=== PATIENT | male | born 1955 | race Caucasian/White ===

== ENCOUNTER 2018-11-24 08:52 | Day surgery (SDC) | payer BC ==
[~2018-11-24 08:52] MED LIST: Lactated Ringers 1,000 ML IV SCH
[2018-11-24] MEDS ORDERED: Propofol 200 MG/20 ML SDV ONE ×3 (10:24→11:52)
[2018-11-24] MEDS ORDERED: fentaNYL 100 MCG/2 ML SDV ONE (10:24)
[2018-11-24 13:02] VITALS: BP 120/68; PULSE 60
--- NOTE | 2018-11-24 13:09 | OR ---
DATE OF SURGERY: 11/24/2018. REFERRING PROVIDER: Yue Wyman DO. PRE-OPERATIVE DIAGNOSES: 1. History of colon polyps. Last colonoscopy 3 years ago, revealed multiple adenomas. 2. Positive family history of colon cancer. 3. Positive family history of colon polyps. POST-OPERATIVE DIAGNOSES: 1. Total of 6 polyps removed. a. 2 mm polyp x3 in the cecum. b. 8 mm polyp at 85 cm, removed with hot snare. c. 2 mm polyp x2 at 80 cm. 2. Significant diverticulosis, left greater than right. 3. Normal distal ileum. PROCEDURE: Colonoscopy with polypectomy x6 (5 using cold forceps and 1 using hot snare). SURGEON: Wilmer Villaseñor M.D. ANESTHESIA: Monitored anesthesia care. BOWEL PREP: Good to fair. Drake is a 63-year-old male, who was brought to the endoscopy suite after discussing risks and benefits of the procedure. Informed consent was obtained for conscious sedation and colonoscopy with or without biopsy and/or polypectomy. We also discussed possibility of missed lesions. Pre-procedure exam was unremarkable. IV, oxygen, and monitors were placed. The patient was placed in the left lateral decubitus position. Sedation was administered and a digital rectal exam was performed and unremarkable. Colonoscope was passed into the rectum and slowly advanced all the way to the cecum. Cecum was viewed and photographed. The ileocecal valve was intubated and distal ileum was normal in appearance. The cecum did reveal 2 mm polyp x3, which were all removed using cold forceps. The ascending colon revealed 8 mm polyp at 85 cm, removed with hot snare as well as 2 mm polyp x2 at 80 cm, removed with cold forceps. The entire colon did reveal significant diverticulosis, left greater than right. Otherwise, the transverse colon unremarkable, descending colon unremarkable, sigmoid colon unremarkable. Retroflexion was performed and rectal mucosa was unremarkable. Scope was removed. The patient tolerated the procedure well. The patient was monitored until that baseline status. Discharge instructions were reviewed and the patient was discharged in good condition. COMPLICATIONS: None. TOTAL TIME: 26 minutes. ESTIMATED BLOOD LOSS: About 1 mL. RECOMMENDATIONS/FOLLOW-UP: We will await results of path report to determine ideal followup interval. I will have the patient hold his aspirin for 3 days to limit any chance of bleeding. I would like to kindly thank Yue Wyman for this referral. DMB: 11/24/2018 12:43:27 MODL: 11/24/2018 13:03:16 /[id number] MTDD
== END 2018-11-24 13:35 | disposition home or self-care (01) ==
LOC: VM.SDS 08:52
PROVIDERS: ATTEND Family Medicine
DX: Z12.11 Encounter for screening for malignant neoplasm of colon (principal); D12.0 Benign neoplasm of cecum; D12.2 Benign neoplasm of ascending colon; K63.5 Polyp of colon; K57.30 Diverticulosis of large intestine without perforation or abscess without bleeding; K21.9 Gastro-esophageal reflux disease without esophagitis; I10 Essential (primary) hypertension; E11.9 Type 2 diabetes mellitus without complications; E78.00 Pure hypercholesterolemia, unspecified; E66.01 Morbid (severe) obesity due to excess calories; F41.9 Anxiety disorder, unspecified; M10.9 Gout, unspecified; Z68.38 Body mass index [BMI] 38.0-38.9, adult; Z86.010 Personal history of colon polyps; Z80.0 Family history of malignant neoplasm of digestive organs; Z83.71 Family history of colonic polyps; Z79.82 Long term (current) use of aspirin; Z79.899 Other long term (current) drug therapy
CPT/HCPCS: 45380; 45385; J2704; J3010; J7120; 45384

== ENCOUNTER 2022-01-01 07:06 | Day surgery (SDC) | payer MEDICARE, BC ==
[2022-01-01] MEDS ORDERED: fentaNYL 100 MCG/2 ML SDV ONE (08:10)
[2022-01-01] MEDS ORDERED: Propofol 200 MG/20 ML SDV ONE ×2 (08:10→08:27)
[2022-01-01 09:07] VITALS: PULSE 58
[2022-01-01 09:24] VITALS: BP 98/41
== END 2022-01-01 10:13 | disposition home or self-care (01) ==
LOC: VM.SDS 07:06
PROVIDERS: ATTEND Family Medicine
DX: Z12.11 Encounter for screening for malignant neoplasm of colon (principal); K62.1 Rectal polyp; K63.5 Polyp of colon; K57.30 Diverticulosis of large intestine without perforation or abscess without bleeding; I10 Essential (primary) hypertension; E66.9 Obesity, unspecified; E11.9 Type 2 diabetes mellitus without complications; M10.9 Gout, unspecified; K21.9 Gastro-esophageal reflux disease without esophagitis; F41.9 Anxiety disorder, unspecified; E78.1 Pure hyperglyceridemia; Z79.82 Long term (current) use of aspirin; Z80.0 Family history of malignant neoplasm of digestive organs; Z98.890 Other specified postprocedural states; Z79.899 Other long term (current) drug therapy; Z68.35 Body mass index [BMI] 35.0-35.9, adult
CPT/HCPCS: 00811; 88305; J2704; J3010; J7120

== ENCOUNTER 2024-10-05 09:55 | Emergency (ER) | payer MEDICARE, BC ==
[2024-10-05 10:09] LABS: BASOPHILS PERCENT AUTO 0.3 % (0.2-1.2); EOSINOPHILS PERCENT AUTO 0.4 % (0.0-4.0); HEMATOCRIT 43.8 % (40.0-52.0); HEMOGLOBIN 15.2 g/dL (14.0-18.0); IMMATURE GRAN ABSOLUTE AUTO 0.01 x10^3/uL (0.00-0.07); LYMPHOCYTES ABSOLUTE AUTO 1.1 x10^3/uL (1.0-4.8); LYMPHOCYTES PERCENT AUTO 13.2 % (25.0-50.0); MEAN CORPUSCULAR HEMOGLOBIN 30.9 pg (26.0-32.0); MEAN CORPUSCULAR HGB CONC 34.7 g/dL (32.0-36.0); MONOCYTES ABSOLUTE AUTO 0.7 x10^3/uL (0.0-0.8); MONOCYTES PERCENT AUTO 8.2 % (2.0-11.0); NEUTROPHILS ABSOLUTE AUTO 6.2 x10^3/uL (1.8-7.7); NEUTROPHILS PERCENT AUTO 77.8 % (50.0-80.0); PLATELET COUNT,PLT 186 x10^3/uL (130-400); RED BLOOD CELL COUNT 4.92 x10^6/uL (4.5-6.0)
[2024-10-05 10:19] VITALS: PULSE 62
[2024-10-05 10:25] LABS: ALBUMIN 3.9 g/dL (3.4-5.0); BILIRUBIN TOTAL 0.6 mg/dL (0.2-1.0); CALCIUM 9.3 mg/dL (8.5-10.1); EST CRCL DRUG DOSING (CG) 73.21 mL/min; PROTEIN TOTAL,TP 7.8 g/dL (6.4-8.2)
[2024-10-05 11:02] VITALS: BP 137/63
== END 2024-10-05 10:56 | disposition home or self-care (01) ==
LOC: SUPCPDRO 09:55 → VM.ED 09:55
DX: R07.89 Other chest pain (principal); I10 Essential (primary) hypertension; E78.00 Pure hypercholesterolemia, unspecified; E11.9 Type 2 diabetes mellitus without complications; E66.9 Obesity, unspecified; Z68.35 Body mass index [BMI] 35.0-35.9, adult; Z79.82 Long term (current) use of aspirin; Z79.899 Other long term (current) drug therapy
CPT/HCPCS: 71045; 80053; 84484; 85025; 93005; 93010; 99284; 99285

== ENCOUNTER 2024-10-07 19:46 | Emergency (ER) | payer MEDICARE, BC ==
[2024-10-07 20:26] VITALS: PULSE 61
[2024-10-07 20:28] LABS: BASOPHILS PERCENT AUTO 0.1 % (0.2-1.2); EOSINOPHILS ABSOLUTE AUTO 0.1 x10^3/uL (0.0-0.5); EOSINOPHILS PERCENT AUTO 0.7 % (0.0-4.0); HEMOGLOBIN 14.5 g/dL (14.0-18.0); IMMATURE GRAN ABSOLUTE AUTO 0.02 x10^3/uL (0.00-0.07); LYMPHOCYTES ABSOLUTE AUTO 1.3 x10^3/uL (1.0-4.8); LYMPHOCYTES PERCENT AUTO 15.6 % (25.0-50.0); MEAN CORPUSCULAR HEMOGLOBIN 31.5 pg (26.0-32.0); MEAN CORPUSCULAR HGB CONC 35.4 g/dL (32.0-36.0); MEAN CORPUSCULAR VOLUME 88.9 fL (78.0-93.0); MONOCYTES ABSOLUTE AUTO 0.8 x10^3/uL (0.0-0.8); MONOCYTES PERCENT AUTO 8.7 % (2.0-11.0); NEUTROPHILS ABSOLUTE AUTO 6.4 x10^3/uL (1.8-7.7); NEUTROPHILS PERCENT AUTO 74.7 % (50.0-80.0); PLATELET COUNT,PLT 151 x10^3/uL (130-400); RED BLOOD CELL COUNT 4.61 x10^6/uL (4.5-6.0); WHITE BLOOD CELL COUNT,WBC 8.6 x10^3/uL (4.0-10.0)
[2024-10-07 20:55] LABS: A/G RATIO 1.09; ALBUMIN 3.7 g/dL (3.4-5.0); BILIRUBIN TOTAL 0.5 mg/dL (0.2-1.0); CALCIUM 8.6 mg/dL (8.5-10.1); EST CRCL DRUG DOSING (CG) 73.21 mL/min; POTASSIUM,K 3.6 mmol/L (3.5-5.1); PROTEIN TOTAL,TP 7.1 g/dL (6.4-8.2)
[2024-10-07 20:57] VITALS: BP 136/68
[2024-10-07 21:01] LABS: ANION GAP 11.6 mmol/L (5-15)
== END 2024-10-07 21:20 | disposition home or self-care (01) ==
LOC: VM.ED 19:46
DX: M79.605 Pain in left leg (principal); M79.604 Pain in right leg; R07.89 Other chest pain; I10 Essential (primary) hypertension; E78.00 Pure hypercholesterolemia, unspecified; E66.9 Obesity, unspecified; E11.9 Type 2 diabetes mellitus without complications; Z79.82 Long term (current) use of aspirin; Z79.899 Other long term (current) drug therapy; Z68.35 Body mass index [BMI] 35.0-35.9, adult
CPT/HCPCS: 36415; 71045; 80053; 83880; 84484; 85025; 93005; 93010; 99284; 99285